=== PATIENT | male | born 1945 | race Caucasian/White ===

== ENCOUNTER → 2022-12-29 | Outpatient (CLI) | payer MEDICARE, OTHER ==
[2022-12-29 17:40] LABS: BASOPHILS ABSOLUTE AUTO 0.07 K/mm3 (0.00-0.23); BASOPHILS PERCENT AUTO 1 % (0-2); EOSINOPHILS ABSOLUTE AUTO 0.31 K/mm3 (0.00-0.68); EOSINOPHILS PERCENT AUTO 5 % (0-6); Hematocrit 45.6 % (37.0-53.0); Hemoglobin 15.9 g/dL (13.5-17.5); IMMATURE GRAN ABSOLUTE AUTO 0.01 K/mm3 (0.00-0.10); IMMATURE GRAN PERCENT AUTO 0 % (0-1); LYMPHOCYTES ABSOLUTE AUTO 1.25 K/mm3 (0.84-5.20); LYMPHOCYTES PERCENT AUTO 19 % (21-46); MONOCYTES ABSOLUTE AUTO 0.38 K/mm3 (0.16-1.47); MONOCYTES PERCENT AUTO 6 % (4-13); Mean Corpuscular HGB 32.9 pg (26.0-34.0); Mean Corpuscular HGB Conc 34.9 g/dL (31.5-36.5); Mean Corpuscular Volume 94 fL (80-100); Mean Platelet Volume 11.2 fL (9.1-12.4); NEUTROPHILS ABSOLUTE AUTO 4.66 K/mm3 (1.96-9.15); NEUTROPHILS PERCENT AUTO 70 % (41-73); Platelet Count 172 K/mm3 (150-400); RDW Coefficient Variation 13.4 % (11.7-14.2); RDW Standard Deviation 46.2 fL (35.1-46.3); Red Blood Cell Count 4.84 M/mm3 (4.30-5.90); White Blood Cell Count 6.68 K/mm3 (4.00-11.30)
[2022-12-29 19:00] LABS: Alanine Aminotransfer (ALT/SGP 24 U/L (12-78); Albumin, Blood 3.8 g/dL (3.4-5.0); Albumin/Globulin Ratio 1.2 (0.8-1.8); Alk Phos 54 U/L (50-136); Anion Gap 6 mmol/L (6-16); Aspartate Aminotrans (AST/SGOT 23 U/L (12-37); Bilirubin, Total 0.6 mg/dL (0.1-1.0); Blood Urea Nitrogen 16 mg/dL (8-24); Bun/Creatinine Ratio 18.4 (12.0-20.0); CHOL/HDL RATIO 4.6; CO2, Blood 27 mmol/L (21-32); Calcium, Blood 8.7 mg/dL (8.5-10.1); Chloride, Blood 108 mmol/L (98-108); Cholesterol 221 mg/dL (50-200); Creatinine, Blood 0.87 mg/dL (0.60-1.20); Globulin, Blood 3.2 g/dL (2.2-4.0); Glomerular Filtration Rate 88 (60-); Glucose, Blood 110 mg/dL (70-99); HDL Cholesterol 48 mg/dL (>39); LDL/HDL RATIO 2.8; Low Density Lipoprotein Chol 135 mg/dL (0-110); Sodium, Blood 141 mmol/L (136-145); Triglycerides 188 mg/dL (30-160); Very Low Density Lipoprot Chol 37 mg/dL (6-32)
== END | disposition home or self-care (01) ==
LOC: LAB SHORT 15:38 → LAB 15:38
PROVIDERS: Family Medicine
DX: Z00.01 Encounter for general adult medical examination with abnormal findings (principal); E78.49 Other hyperlipidemia; N42.9 Disorder of prostate, unspecified
CPT/HCPCS: 80053; 80061; 84153; 85025

== ENCOUNTER 2024-03-29 11:33 | Inpatient (IN) | payer MEDICARE, OTHER ==
[~2024-03-29] VITALS: Ht 182.9 cm; Wt 77.1 kg
[2024-03-29] MEDS ORDERED: Morphine Sulfate 4 MG/1 ML Injection IV ONE ×3 (12:20→14:30)
[2024-03-29 12:46] LABS: BASOPHILS ABSOLUTE AUTO 0.06 K/mm3 (0.00-0.23); BASOPHILS PERCENT AUTO 1 % (0-2); EOSINOPHILS ABSOLUTE AUTO 0.22 K/mm3 (0.00-0.68); EOSINOPHILS PERCENT AUTO 3 % (0-6); Hematocrit 45.8 % (37.0-53.0); Hemoglobin 16.1 g/dL (13.5-17.5); IMMATURE GRAN ABSOLUTE AUTO 0.02 K/mm3 (0.00-0.10); IMMATURE GRAN PERCENT AUTO 0 % (0-1); LYMPHOCYTES ABSOLUTE AUTO 1.02 K/mm3 (0.84-5.20); LYMPHOCYTES PERCENT AUTO 11 % (21-46); MONOCYTES PERCENT AUTO 6 % (4-13); Mean Corpuscular HGB 32.7 pg (26.0-34.0); Mean Corpuscular HGB Conc 35.2 g/dL (31.5-36.5); Mean Corpuscular Volume 93 fL (80-100); Mean Platelet Volume 10.7 fL (9.1-12.4); NEUTROPHILS ABSOLUTE AUTO 7.14 K/mm3 (1.96-9.15); NEUTROPHILS PERCENT AUTO 80 % (41-73); Platelet Count 166 K/mm3 (150-400); RDW Coefficient Variation 13.6 % (11.7-14.2); RDW Standard Deviation 46.5 fL (35.1-46.3); Red Blood Cell Count 4.92 M/mm3 (4.30-5.90); White Blood Cell Count 8.96 K/mm3 (4.00-11.30)
[2024-03-29 13:07] LABS: Bun/Creatinine Ratio 15.5 (12.0-20.0); Calcium, Blood 9.1 mg/dL (8.5-10.1); Creatinine, Blood 0.91 mg/dL (0.60-1.20); Potassium, Blood 4.5 mmol/L (3.5-5.5)
[2024-03-29] MEDS ORDERED: Acetaminophen 325 MG TABLET PO PRN (14:45)
[2024-03-29] MEDS ORDERED: Ondansetron 4 MG TAB PO PRN (14:50)
[2024-03-29] MEDS ORDERED: Bisacodyl 10 MG Supp PR PRN (14:50)
[2024-03-29] MEDS ORDERED: OxyCODONE HCL 5 MG TAB PO PRN (14:50)
[2024-03-29] MEDS ORDERED: TraZODone HCl 50 MG Tab PO PRN (14:50)
[2024-03-29] MEDS ORDERED: D5W-NS 1,000 ML IV SCH (14:50)
[2024-03-29] MEDS ORDERED: Magnesium Hydroxide Conc 10 ML UDC PO PRN (14:50)
[2024-03-29] MEDS ORDERED: FLU VACC TS2024-25(6MOS UP)/PF 45 MCG/0.5 ML SYRINGE IM SCH (14:50)
[2024-03-29 17:47] VITALS: BP 146/63
[2024-03-29] MEDS ORDERED: OMEGA-3 1,0501 EACH PO (18:27)
[2024-03-29] MEDS ORDERED: Garlic500 MG PO (18:27)
[2024-03-29] MEDS ORDERED: MELATONIN5 M1 PO (18:27)
[2024-03-29] MEDS ORDERED: Hair, Skin & N1 EACH PO (18:28)
[2024-03-29 19:38] VITALS: BP 118/63
[2024-03-29] MEDS ORDERED: Famotidine 20 MG Tab PO SCH (21:00)
[2024-03-29] MEDS ORDERED: Docusate Sodium 100 MG Cap PO SCH (21:00)
[2024-03-29] MEDS ORDERED: Lactobacil 2-S.Thermo-Bifido 1 1 Cap PO SCH (21:00)
[2024-03-30] VITALS (15 sets, daily range): BP systolic 91–116; BP diastolic 55–76
--- NOTE | 2024-03-30 00:30 | NUR ---
TELEMETRY. CALL RECEIVED FROM TELEMETRY AT 0029. PT HAD A 7 BEAT RUN OF BIGEMENY. PT NSR AT 85 AFTER EVENT THIS RN IMMEDIATELY VISUALIZED PT. PT DENIES SOB OR CHEST PAIN. DISCUSSED WITH PRESS SET UP PERSON JHOANA Sparks SINCE PT ASYMPTOMATIC WILL CALL PROVIDER IF EVENT OCCURS.
--- NOTE | 2024-03-30 04:48 | NUR ---
SHIFT SUMMARY NOC. PT ADMIT FOR RIGHT HIP FX. DENIES N/T IN ALL EXT. CAP REFILL BRISK. PT MEDICATED FOR PAIN WITH ORAL OXY AND TYLENOL, PT REPORTED SOME-MINIMAL RELIEF. PT VERBALIZED BEING HESITANT TO TAKE PILLS, DECLINED INCREASE IN PAIN MEDS WHEN THIS RN OFFERED TO CALL DOCTOR FOR NEW ORDERS. SURGICAL INFECTION WIPE DOWN PERFORMED. PT VOIDING URINE. MAKES NEEDS KNOWN, CALL LIGHT IN REACH.
[2024-03-30 05:23] LABS: BASOPHILS ABSOLUTE AUTO 0.07 K/mm3 (0.00-0.23); BASOPHILS PERCENT AUTO 1 % (0-2); EOSINOPHILS ABSOLUTE AUTO 0.41 K/mm3 (0.00-0.68); EOSINOPHILS PERCENT AUTO 3 % (0-6); Hematocrit 39.1 % (37.0-53.0); Hemoglobin 13.7 g/dL (13.5-17.5); IMMATURE GRAN ABSOLUTE AUTO 0.03 K/mm3 (0.00-0.10); IMMATURE GRAN PERCENT AUTO 0 % (0-1); LYMPHOCYTES ABSOLUTE AUTO 0.95 K/mm3 (0.84-5.20); LYMPHOCYTES PERCENT AUTO 8 % (21-46); MONOCYTES PERCENT AUTO 6 % (4-13); Mean Corpuscular HGB 32.9 pg (26.0-34.0); Mean Corpuscular Volume 94 fL (80-100); Mean Platelet Volume 10.7 fL (9.1-12.4); NEUTROPHILS ABSOLUTE AUTO 9.83 K/mm3 (1.96-9.15); NEUTROPHILS PERCENT AUTO 82 % (41-73); Platelet Count 151 K/mm3 (150-400); RDW Coefficient Variation 13.8 % (11.7-14.2); RDW Standard Deviation 47.3 fL (35.1-46.3); Red Blood Cell Count 4.17 M/mm3 (4.30-5.90); White Blood Cell Count 11.99 K/mm3 (4.00-11.30)
[2024-03-30 05:38] LABS: International Normalized Ratio 1.02; Prothrombin Time Results 10.9 Sec (9.7-11.5)
[2024-03-30 06:16] LABS: Bun/Creatinine Ratio 13.6 (12.0-20.0); Calcium, Blood 8.4 mg/dL (8.5-10.1); Creatinine, Blood 0.96 mg/dL (0.60-1.20)
[2024-03-30] MEDS ORDERED: Aspirin 81 MG Chew PO SCH (09:00)
[2024-03-30] MEDS ORDERED: Lactated Ringer's 1,000 ML IV SCH ×2 (09:45→16:45)
[2024-03-30] MEDS ORDERED: CeFAZolin Sodium 2,000 MG in NS 100 ML IV SCH ×2 (11:05→22:00)
[2024-03-30] MEDS ORDERED: Tranexamic Acid 1,000 MG in NS 100 ML IV SCH (11:05)
[2024-03-30] MEDS ORDERED: Ropivacaine 0.5% HCl/Pf 123.125 MG,EPINEPHrine HCL 0.25 MG,Ketorolac Tromethamine 15 MG... INFIL SCH (11:15)
[2024-03-30] MEDS ORDERED: ASPI325 PO (11:18)
[2024-03-30] MEDS ORDERED: Vitamin D1000 UNI1 PO (11:18)
[2024-03-30] MEDS ORDERED: CALCIUM CARBON500 M1 PO (11:18)
--- NOTE | 2024-03-30 11:47 | NUR ---
MORNING NOTE THIS RN ASSUMED CARE AT APPROX 0715. PATIENT ALERT AND ORIENTED X4. COMMUNICATES NEEDS EFFECTIVELY. VSS. SBP 100s. MAP >65. TELEMETRY SHOWING SINUS 60s PER STAGE SETTING PAINTER APPRENTICE. X1 EPISODE OF BIGEMINY THIS AM - PATIENT ASYMPTOMATIC. X1 EPISODE DID OCCUR LAST NIGHT PER NOC RN. PRE OP EKG OBTAINED. ON ROOM AIR, SATs >90%. R HIP FX - PPP, CAP REFILL <3 SECONDS, DENIES N/T. MANAGING PAIN PER EMAR. NPO SINCE MIDNIGHT FOR REPAIR. MD MONTEIRO AT BEDSIDE THIS MORNING FOR CONSENT. USES URINAL INDEPENDENTLY. CALL LIGHT IN REACH.
--- NOTE | 2024-03-30 12:03 | NUR ---
PATIENT TRANSFERRED OFF UNIT FOR PROCEDURE
--- NOTE | 2024-03-30 12:15 | NUR ---
INTO SDS VIA BED. PT REPORTS 6/10 RIGHT HIP PAIN. PT LAST MEDICATED FOR PAIN @ 1200. HISTORY AND ALLERGIES REVIEWED. LUNGS CLEAR. TEMP 99.5-OTHER VS WDL. NPO STATUS CONFIRMED. PT LEFT HIS HEARING AIDES, DENTURES, AND GLASSES IN THE ROOM.
[2024-03-30] MEDS ORDERED: CeFAZolin Sodium 2,000 MG VIAL ONE (12:47)
[2024-03-30] MEDS ORDERED: Acetaminophen 500 MG Tab ONE (12:50)
[2024-03-30] MEDS ORDERED: Acetaminophen 500 MG Tab PO ONE (12:55)
[2024-03-30] MEDS ORDERED: Chlorhexidine Mouth Care 15 ML UDC MT SCH (12:55)
[2024-03-30] MEDS ORDERED: propofoL 20 ML IV ONE ×3 (13:15→14:54)
[2024-03-30] MEDS ORDERED: Ondansetron HCl 2 MG / ML 2ML Vial ONE (14:17)
[2024-03-30] MEDS ORDERED: Phenylephrine HCl 100 MCG/ML-NS 10MLSYR (1MG/10ML) ONE (14:18)
[2024-03-30] MEDS ORDERED: Phenylephrine HCl 10mg/ml 1 ml Vial ONE ×2 (14:36→14:40)
[2024-03-30] MEDS ORDERED: HYDROmorphone HCl/Pf 1MG SYR IV PRN ×3 (14:40→16:45)
[2024-03-30] MEDS ORDERED: Dexamethasone Sodium Phosphate 4 MG/ML 5ML VIAL IV PRN (14:40)
[2024-03-30] MEDS ORDERED: FentaNYL Citrate 50 MCG/ML 2 ML Injection IV PRN (14:40)
[2024-03-30] MEDS ORDERED: Labetalol HCL 5 MG/ML 4ML Injection (Single Dose) IV PRN (14:40)
[2024-03-30] MEDS ORDERED: propofoL 0 ML IV ONE (15:38)
[2024-03-30] MEDS ORDERED: Bisacodyl 10 MG Supp PR PRN (16:40)
[2024-03-30] MEDS ORDERED: Metoclopramide HCl 5MG / ML 2ML Vial IV PRN (16:40)
[2024-03-30] MEDS ORDERED: Magnesium Hydroxide Conc 10 ML UDC PO PRN (16:40)
[2024-03-30] MEDS ORDERED: OxyCODONE HCL 5 MG TAB PO PRN ×2 (16:40)
[2024-03-30] MEDS ORDERED: FLU VACC TS2024-25(6MOS UP)/PF 45 MCG/0.5 ML SYRINGE IM ONE (16:45)
[2024-03-30] MEDS ORDERED: Ondansetron HCl 2 MG / ML 2ML Vial IV PRN (16:45)
[2024-03-30] MEDS ORDERED: Promethazine HCl 25 MG Tab PO PRN (16:45)
[2024-03-30] MEDS ORDERED: DiphenhydrAMINE HCL 25 MG Cap PO PRN (16:50)
[2024-03-30] MEDS ORDERED: Prochlorperazine Edisylate 10 mg Vial IV PRN (16:50)
[2024-03-30] MEDS ORDERED: Ketorolac Tromethamine 30mg Vial ONE (17:24)
--- NOTE | 2024-03-30 17:43 | NUR ---
RETURN TO UNIT AFTER RECEIVING REPORT FROM NURSE CHEMICAL DEPENDENCY, PATIENT TRANSFERRED BACK TO UNIT AT APPROX 1735. PATIENT ALERT AND ORIENTED X4. COMMUNICATING NEEDS EFFECTIVELY. S/P TOTAL R HIP ARTHROPLASTY - X2 GAUZE AND PRESSURE TAPE DRESSINGS C/D/I. PPP. CAP REFILL <3 SECONDS. RECEIVED SPINAL - MINIMAL SENSATION, ABLE TO WIGGLE TOES SOME. DENIES PAIN. VSS. TELEMETRY SHOWING SINUS WITH PVCs 70s PER SENIOR QUALITY METHODS SPECIALIST. SBP 100s. MAP >65. DENIES CHEST PAIN, PRESSURE. ON 2L VIA NC, SATs 90-94%. DENIES N/V - WATER AND SNACKS WITHIN REACH. IVF INFUSING TO GRAVITY. CALL LIGHT IN REACH. FAMILY AT BEDSIDE.
[2024-03-30] MEDS ORDERED: Ketorolac Tromethamine 15mg Vial IV SCH (18:00)
[2024-03-30] MEDS ORDERED: NS 250 ML IV PRN (21:00)
[2024-03-30] MEDS ORDERED: Docusate Sodium 100 MG Cap PO SCH (21:00)
[2024-03-31] MEDS ORDERED: Acetaminophen 500 MG Tab PO SCH
[2024-03-31 00:17] VITALS: BP 115/75
[2024-03-31 05:00] LABS: BASOPHILS ABSOLUTE AUTO 0.08 K/mm3 (0.00-0.23); BASOPHILS PERCENT AUTO 1 % (0-2); EOSINOPHILS ABSOLUTE AUTO 0.65 K/mm3 (0.00-0.68); EOSINOPHILS PERCENT AUTO 5 % (0-6); Hematocrit 35.3 % (37.0-53.0); Hemoglobin 12.2 g/dL (13.5-17.5); IMMATURE GRAN ABSOLUTE AUTO 0.05 K/mm3 (0.00-0.10); IMMATURE GRAN PERCENT AUTO 0 % (0-1); LYMPHOCYTES ABSOLUTE AUTO 0.65 K/mm3 (0.84-5.20); LYMPHOCYTES PERCENT AUTO 5 % (21-46); MONOCYTES ABSOLUTE AUTO 0.83 K/mm3 (0.16-1.47); MONOCYTES PERCENT AUTO 6 % (4-13); Mean Corpuscular HGB 33.2 pg (26.0-34.0); Mean Corpuscular HGB Conc 34.6 g/dL (31.5-36.5); Mean Corpuscular Volume 96 fL (80-100); Mean Platelet Volume 10.8 fL (9.1-12.4); NEUTROPHILS ABSOLUTE AUTO 11.08 K/mm3 (1.96-9.15); NEUTROPHILS PERCENT AUTO 83 % (41-73); Platelet Count 115 K/mm3 (150-400); RDW Coefficient Variation 14.1 % (11.7-14.2); Red Blood Cell Count 3.68 M/mm3 (4.30-5.90); White Blood Cell Count 13.34 K/mm3 (4.00-11.30)
[2024-03-31 05:16] VITALS: BP 108/66
[2024-03-31 05:27] LABS: Calcium, Blood 8.1 mg/dL (8.5-10.1); Creatinine, Blood 0.94 mg/dL (0.60-1.20); Magnesium, Blood 1.9 mg/dL (1.6-2.4); Potassium, Blood 4.3 mmol/L (3.5-5.5)
--- NOTE | 2024-03-31 06:58 | NUR ---
SHIFT SUMMARY POD 1 RIGHT TOTAL HIP REPAIR. DRESSINGS TO RIGHT HIP CDI. ICE APPLIED TO HIP TOLERATED T/O SHIFT. PT OOB TO BATHROOM WITH SBA, FWW, GB. USING URINAL AT BEDSIDE. ABX INFUSED PER ORDERS. PAIN MANAGED PER EMAR. PLAN TO WORK WITH THERAPY TODAY. WILL GIVE REPORT TO ONCOMING RN.
[2024-03-31 07:20] VITALS: BP 113/71
[2024-03-31] MEDS ORDERED: Aspirin 81 MG Chew PO SCH (09:00)
[2024-03-31] MEDS ORDERED: Trimethoprim/Sulfamethoxazole DS Tab PO SCH (09:00)
--- NOTE | 2024-03-31 09:46 | NUR ---
MORNING NOTE THIS RN ASSUMED CARE AT APPROX 0715. PATIENT ALERT AND ORIENTED X4. IS [place] - BILATERAL HEARING AIDES IN PLACE. COMMUNICATES NEEDS EFFECTIVELY. VSS. TELEMETRY SHOWING SINUS WITH PVCs AND BBB PER MANAGER LIFE. RATE 60s-70s. DENIES CHEST PAIN, PRESSURE. SBP 100s-110s. MAP >65. ON 1-2L VIA NC, SATs 90-94%. ENCOURAGING TO COUGH AND DEEP BREATH. INCENTIVE SPIROMETER AT BEDSIDE. POD 1 R TYLOR - MD MONTEIRO AT BEDSIDE THIS MORNING, AQUACEL DRESSINGS PLACED X2 TO R HIP. C/D/I. DENIES PAIN AT THIS TIME. TOLERATING PO INTAKE. VOIDING. AMBULATING WITH 1P ASSIST FWW GB - POSTERIOR PRECAUTIONS. AWAITING PHYSICAL/OCCUPATIONAL THERAPY EVAL THIS MORNING. UP IN CHAIR. CALL LIGHT IN REACH.
[2024-03-31 15:03] VITALS: BP 135/78
--- NOTE | 2024-03-31 16:03 | NUR ---
SHIFT SUMMARY NO ACUTE CHANGES SINCE MORNING NOTE. PATIENT REMAINS ALERT AND ORIENTED X4. VSS. SBP 110s-130s. MAP >65. TELEMETRY REMOVED PER MD ORDER - NO EVENTS REPORTED PRIOR TO REMOVAL. DENIES CHEST PAIN, PRESSURE. TOLERATING ROOM AIR, SATs >90%. INCENTIVE SPIROMETER AT BEDSIDE. AMBULATING WITH 1P ASSIST FWW GB TO RESTROOM OR CHAIR. PATIENT LETHARGIC POST PHYSICAL THERAPY EVAL - UNABLE TO WORK WITH OCCUPATIONAL THERAPY TODAY. X1 EPISODE OF N/V WITH MINIMAL EMESIS - IMPROVED WITH IV ZOFRAN. MANAGING PAIN PER EMAR. VOIDING. NO BM TODAY - REPORTS FLATULENCE. CALL LIGHT IN REACH. AT BEDSIDE.
--- NOTE | 2024-03-31 16:43 | NUR ---
REPORT GIVEN TO SARAH CRZU TO ASSUME CARE AT THIS TIME
[2024-03-31 20:57] VITALS: BP 116/74
[2024-04-01 04:16] VITALS: BP 113/67
[2024-04-01 05:46] LABS: Hematocrit 35.1 % (37.0-53.0); Hemoglobin 12.2 g/dL (13.5-17.5); Mean Corpuscular HGB 32.8 pg (26.0-34.0); Mean Corpuscular HGB Conc 34.8 g/dL (31.5-36.5); Mean Corpuscular Volume 94 fL (80-100); Mean Platelet Volume 11.2 fL (9.1-12.4); Platelet Count 110 K/mm3 (150-400); RDW Coefficient Variation 13.9 % (11.7-14.2); RDW Standard Deviation 48.2 fL (35.1-46.3); Red Blood Cell Count 3.72 M/mm3 (4.30-5.90); White Blood Cell Count 10.66 K/mm3 (4.00-11.30)
[2024-04-01 06:10] LABS: Bun/Creatinine Ratio 19.2 (12.0-20.0); Calcium, Blood 8.1 mg/dL (8.5-10.1); Creatinine, Blood 1.04 mg/dL (0.60-1.20); Magnesium, Blood 1.9 mg/dL (1.6-2.4); Phosphorus, Blood 2.1 mg/dL (2.5-4.9); Potassium, Blood 4.1 mmol/L (3.5-5.5)
[2024-04-01 07:37] VITALS: BP 109/64
--- NOTE | 2024-04-01 07:57 | NUR ---
SHIFT SUMMARY POD 2 S/P RIGHT JACLYN HIP REPAIR. AQUACEL DRESSINGS COVERING SURGICAL INCISION SITES X 2 CDI. ICE APPLIED TO RIGHT HIP TOLERATED T/O NIGHT. PAIN MANAGED PER EMAR. UP IN CHAIR FOR SEVERAL HOURS AT START OF SHIFT. AMBULATING TO BATHROOM WITH FWW, GB, SBA. REPORTS INCREASED FATIGUE TONIGHT, DECLINED AMBULATING IN HALLWAY OR OOB FOR BREAKFAST. IS VOIDING. NELY REGULAR DIET, DENIES NV. IV SL. ON 1L NC WITH CONT BIOX DUE TO SATS DROPPING BELOW 92% WHILE SLEEPING, DENIES SOB. ENCOURAGED TURN, COUGH, AND DEEP BREATHS T/O SHIFT, PT ABLE TO DEMONSTRATE. I.S. AT BEDSIDE. PT CURRENTLY RESTING IN BED WITH CALL LIGHT IN REACH. REPORT GIVEN TO DAY RN. PLAN FOR PATIENT TO WORK WITH THERAPY.
[2024-04-01] MEDS ORDERED: Potassium Phosphate Dibasic 30 MM in Dextrose 5% 500 ML IV STA (09:41)
[2024-04-01] MEDS ORDERED: Sodium Phosphate 30 MM in Dextrose 5% 500 ML IV ONE (11:45)
[2024-04-01] MEDS ORDERED: Polyethylene Glycol 3350 17 gm PO ONE (11:45)
[2024-04-01] MEDS ORDERED: DOCU100 PO (13:09)
[2024-04-01] MEDS ORDERED: BACTRIM DS TAB1 EAC1 PO (13:10)
[2024-04-01] MEDS ORDERED: Percocet 5-3251 EACH PO (13:11)
[2024-04-01] MEDS ORDERED: MIRALAX1714 PO (13:13)
[2024-04-01] MEDS ORDERED: MULVITA PO (13:47)
[2024-04-01] MEDS ORDERED: Aspir 8181 MG PO (13:47)
[2024-04-01] MEDS ORDERED: VISBIOME 112.51 EACH PO (13:49)
[2024-04-01 14:27] VITALS: BP 109/69
--- NOTE | 2024-04-01 16:52 | NUR ---
DISCHARGE PT AND EDUCATED ON AND RECEIVED PRINTED DISCHARGE INSTRUCTIONS AND VERBALIZED AN UNDERSTANDING AND RECEIVED EXTRA AQUACEL DRESSINGS. ALREADY FILLED NEW RX AND PICKED UP MEDICAL EQUIPMENT FOR HOME. HOME HEALTH SET UP PER SENIOR SALES CONSULTANT. IV DC'D. PT FAMILY GATHERING ALL PERSONAL BELONGINGS. PT WILL BE ESCORTED OUT TO VEHICLE VIA W/C.
== END 2024-04-01 17:13 | disposition home health service (06) | DRG 522 ==
LOC: ER 11:33 → SURS 14:43 → ERHOLD 14:43 → SURS 17:38
PROVIDERS: Emergency Medicine; Orthopaedic Surgery; ADMIT Hospitalist
PROC: 0SR9039 Replacement of Right Hip Joint with Ceramic Synthetic Substitute, Cemented, Open Approach (ICD-10-PCS; principal; 2024-03-30 14:00)
DX: S72.001A Fracture of unspecified part of neck of right femur, initial encounter for closed fracture (principal); E87.1 Hypo-osmolality and hyponatremia; W10.1XXA Fall (on)(from) sidewalk curb, initial encounter; M16.11 Unilateral primary osteoarthritis, right hip; E83.39 Other disorders of phosphorus metabolism; D69.6 Thrombocytopenia, unspecified; Y92.009 Unspecified place in unspecified non-institutional (private) residence as the place of occurrence of the external cause; Z79.899 Other long term (current) drug therapy; Z79.82 Long term (current) use of aspirin; Z28.29 Immunization not carried out because of patient decision for other reason
CPT/HCPCS: 36415; 72170; 73502; 80048; 83735; 84100; 85025; 85027; 85610; 93005; 93010; 94762; 96374; 96376; 97110; 97116; 97162; 97165; 97530; 97535; 99284-25; A9270; C1713; C1776; J0171; J0690; J0735; J1885; J2270; J2371; J2405; J2704; J2795; J7042; J7050; J7060; J7120